=== PATIENT | male | born 1990 | race Caucasian/White ===

== ENCOUNTER 2022-08-01 10:09 | Emergency (ER) | payer MEDICAID ==
[~2022-08-01] VITALS: Ht 180.3 cm; Wt 77.3 kg
[2022-08-01 10:39] VITALS: BP 146/74
[2022-08-01 11:11] LABS: GLUCOMETER DEV NAME(LOC) ERT.5; GLUCOSE,POINT OF CARE 109 MG/DL (70-110)
== END 2022-08-01 13:15 | disposition left against medical advice (07) ==
LOC: EMS 10:09
DX: Z53.21 Procedure and treatment not carried out due to patient leaving prior to being seen by health care provider (principal)
CPT/HCPCS: 82962

== ENCOUNTER 2024-05-26 11:45 | Inpatient (IN) | payer MEDICAID ==
[~2024-05-26] VITALS: Ht 172.7 cm; Wt 86.4 kg
[~2024-05-26 11:45] MED LIST: LISI-893 PO; SERT-158 PO; SERT-439 PO
[2024-05-26 13:38] LABS: BASOPHILS % (AUTO) 0.4 % (0.0-2.0); EOSINOPHILS % (AUTO) 0 % (1.0-6.0); HEMATOCRIT 41.2 % (41-53); HEMOGLOBIN 13.4 g/dL (13.5-17.5); LYMPHOCYTES # (AUTO) 1.4 K/uL (1.0-4.8); LYMPHOCYTES % (AUTO) 11.8 % (22.0-44.0); MEAN CORPUSCULAR HGB CONC 32.6 G/dL (31.0-37.0); MEAN CORPUSCULAR VOLUME 86 fL (80-100); MONOCYTES # (AUTO) 0.5 K/uL (0.1-1.0); MONOCYTES % (AUTO) 4.1 % (2.0-9.0); NEUTROPHILS % (AUTO) 83.7 % (40.0-70.0); PLATELET COUNT (AUTO) 223 K/uL (150-450); RED BLOOD CELL COUNT(AUTO) 4.79 MIL/uL (4.50-5.90); RED CELL DISTRIBUTION WIDTH 14.8 % (11.5-14.5)
[2024-05-26 13:52] LABS: ANION GAP 14 mmol/L (8-16); CARBON DIOXIDE 26 mmol/L (22-29); CHLORIDE 95 mmol/L (98-107); CREATININE 0.93 mg/dL (0.60-1.30); GLOMERULAR FILTR. RATE CALC > 60 mL/min (>60); GLUCOSE,RANDOM 102 mg/dL (70-110); POTASSIUM 3.2 mmol/L (3.5-5.1); SODIUM SERUM 135 mmol/L (136-145); UREA NITROGEN, BLOOD 5 mg/dL (7-18)
[2024-05-26 13:56] LABS: ALCOHOL, BLOOD (SERUM) 344 mg/dL (0-10)
[2024-05-26 13:58] LABS: AMPHET/METH SCREEN,URINE NEGATIVE (NEGATIVE); BARBITURATE SCREEN, URINE NEGATIVE (NEGATIVE); BENZODIAZEPINES SCREEN,URINE NEGATIVE (NEGATIVE); CANNABINOID SCREEN,URINE NEGATIVE (NEGATIVE); COCAINE SCREEN,URINE NEGATIVE (NEGATIVE); METHADONE SCREEN, URINE NEGATIVE (NEGATIVE); OPIATE SCREEN,URINE NEGATIVE (NEGATIVE); PHENCYCLIDINE SCREEN,URINE NEGATIVE (NEGATIVE)
[2024-05-26 13:59] LABS: ALCOHOL, URINE DRUG SCREEN POSITIVE (NEGATIVE)
[2024-05-26] MEDS ORDERED: HALOPERIDOL 5 MG TABLET PO PRN (16:45)
[2024-05-26 18:59] LABS: COVID AG,FIA SOURCE NASAL SWAB
[2024-05-26 19:17] LABS: SARS-COV2 (COVID) ANTIGEN,FIA Negative (Negative)
[2024-05-26] MEDS: ZOLPIDEM TARTRATE 10 MG TABLET PO PRN (19:34)
[2024-05-27] VITALS (13 sets, daily range): BP systolic 121–154; BP diastolic 78–110; PULSE 75–125; RESP 15–20; TEMP 97.3–99.4; O2SAT 97–99
[2024-05-27] MEDS: POTASSIUM CHLORIDE 20 MEQ ER TABLET PO ONE (00:11)
[2024-05-27] MEDS: LORazepam 2 MG TABLET PO PRN (06:59)
[2024-05-27 07:01] LABS: GLUCOMETER DEV NAME(LOC) BV2S.; GLUCOSE,POINT OF CARE 121 MG/DL (70-110)
[2024-05-27 07:51] LABS: BASOPHILS % (AUTO) 0.5 % (0.0-2.0); EOSINOPHILS % (AUTO) 0.1 % (1.0-6.0); HEMATOCRIT 35.6 % (41-53); HEMOGLOBIN 11.8 g/dL (13.5-17.5); LYMPHOCYTES # (AUTO) 1.5 K/uL (1.0-4.8); LYMPHOCYTES % (AUTO) 21.2 % (22.0-44.0); MEAN CORPUSCULAR HEMOGLOBIN 28.8 pg (26.0-34.0); MEAN CORPUSCULAR VOLUME 87 fL (80-100); MONOCYTES # (AUTO) 0.5 K/uL (0.1-1.0); MONOCYTES % (AUTO) 7.9 % (2.0-9.0); NEUTROPHILS # (AUTO) 4.8 K/uL (1.8-7.7); NEUTROPHILS % (AUTO) 70.3 % (40.0-70.0); PLATELET COUNT (AUTO) 168 K/uL (150-450); RED BLOOD CELL COUNT(AUTO) 4.08 MIL/uL (4.50-5.90); RED CELL DISTRIBUTION WIDTH 14.9 % (11.5-14.5); WHITE BLOOD COUNT (AUTO) 6.9 K/uL (4.5-11.0)
[2024-05-27 08:10] LABS: HEMOGLOBIN A1C 5.5 % (3.8-5.6)
[2024-05-27 08:13] LABS: ANION GAP 6 mmol/L (8-16); CALCIUM, TOTAL 8.6 mg/dL (8.8-10.5); CARBON DIOXIDE 31 mmol/L (22-29); CHLORIDE 97 mmol/L (98-107); CHOLESTEROL 154 mg/dL (131-200); CREATININE 0.77 mg/dL (0.60-1.30); GLOMERULAR FILTR. RATE CALC > 60 mL/min (>60); GLUCOSE,RANDOM 112 mg/dL (70-110); HDL CHOLESTEROL 61 mg/dL (40-60); POTASSIUM 3.9 mmol/L (3.5-5.1); SODIUM SERUM 134 mmol/L (136-145); TRIGLYCERIDES 123 mg/dL (15-150); UREA NITROGEN, BLOOD 7 mg/dL (7-18)
[2024-05-27 08:14] LABS: CHOL/HDL RATIO 2.5 (4.2-7.3); FREE T4 (FREE THYROXINE) 1.15 ng/dL (0.76-1.46); LDL CHOL (CALC.) 68 mg/dL (0-130); THYROID STIMULATING HORMONE 1.08 uIU/mL (0.36-3.74)
[2024-05-27] MEDS ORDERED: CloNIDine HCL 0.1 MG TABLET PO PRN (14:00)
[2024-05-27] MEDS ORDERED: DOCUSATE SODIUM 100 MG CAPSULE PO PRN (14:00)
[2024-05-27] MEDS ORDERED: GuaiFENesin/D-METHORPHAN [SUGAR-FREE] 200-20MG/10 ML SYRUP UDCUP PO PRN (14:00)
[2024-05-27] MEDS ORDERED: MAG HYDROX/ALUMINUM HYD/SIMETH ES 30 ML SUSPENSION UDCUP PO PRN (14:00)
[2024-05-27] MEDS ORDERED: ONDANSETRON HCL 4 MG TABLET PO PRN (14:00)
[2024-05-27] MEDS ORDERED: NICOTINE 14 MG/24 HOUR PATCH TD PRN (14:00)
[2024-05-27] MEDS ORDERED: PETROLATUM,WHITE 28 GM JELLY TP PRN (14:00)
[2024-05-27] MEDS ORDERED: LOPERAMIDE HCL 2 MG CAPSULE PO PRN (14:00)
[2024-05-27] MEDS ORDERED: ALBUTEROL SULFATE HFA 90 MCG/PUFF 8 GM INHALER IH PRN (14:00)
[2024-05-27] MEDS ORDERED: MAGNESIUM HYDROXIDE SUSPENSION 30 ML UDCUP PO PRN (14:00)
[2024-05-27] MEDS: LISINOPRIL 10 MG TABLET PO SCH (14:11)
[2024-05-27] MEDS: MIRTAZAPINE 30 MG TABLET PO SCH (20:46)
[2024-05-27] MEDS ORDERED: MIRTAZAPINE 15 MG TABLET PO SCH (21:00)
[2024-05-27] MEDS: TraMADol HCL 50 MG TABLET PO PRN (21:07)
[2024-05-28 03:00] VITALS: BP 146/98; PULSE 102; RESP 17; TEMP 97.8; O2SAT 98
[2024-05-28 06:58] VITALS: BP 149/98; PULSE 96; RESP 18; TEMP 97.6; O2SAT 98
[2024-05-28 09:03] VITALS: BP 113/92; PULSE 86; RESP 16; TEMP 98; O2SAT 99
[2024-05-28] MEDS: GABAPENTIN 300 MG CAPSULE PO SCH (09:18)
[2024-05-28 09:19] LABS: CHOL/HDL RATIO 2.9 (4.2-7.3); THYROID STIMULATING HORMONE 1.39 uIU/mL (0.36-3.74)
[2024-05-28 09:24] LABS: HEMOGLOBIN A1C 5.3 % (3.8-5.6)
[2024-05-28 09:26] LABS: APPEARANCE,URINE CLEAR (CLEAR); BILIRUBIN,URINE NEGATIVE (NEGATIVE); COLOR,URINE LIGHT YELLOW (YELLOW); GLUCOSE, URINE (UA) NEGATIVE (NEGATIVE); KETONES,URINE NEGATIVE (NEGATIVE); LEUKOCYTE ESTERASE ,URINE NEGATIVE (NEGATIVE); NITRATE,URINE NEGATIVE (NEGATIVE); OCCULT BLOOD,URINE NEGATIVE (NEGATIVE); PROTEIN,URINE TRACE mg/dL (NEGATIVE); SPECIFIC GRAVITIY, URINE 1.013 (1.003-1.030); UROBILINOGEN,URINE <=1.0 mg/dL (<=1.0)
[2024-05-28] MEDS: IBUPROFEN 400 MG TABLET PO PRN (09:30)
[2024-05-28] MEDS: ACETAMINOPHEN 325 MG TABLET PO PRN (14:29)
[2024-05-28 16:51] VITALS: BP 144/99; PULSE 103; RESP 18; TEMP 98.3; O2SAT 98
[2024-05-28 20:50] VITALS: BP 140/97; PULSE 100; RESP 16; TEMP 98.1; O2SAT 99
[2024-05-28 20:58] VITALS: BP 144/99; PULSE 108; RESP 16; TEMP 98.1; O2SAT 99
[2024-05-29 08:43] VITALS: BP 131/90; PULSE 106; RESP 17; TEMP 97.8; O2SAT 95; O2SAT 98
[2024-05-29] MEDS ORDERED: GABA-1181 PO ×2 (10:27→12:34)
[2024-05-29] MEDS ORDERED: MIRT-149 PO ×2 (10:28→12:34)
== END 2024-05-29 14:30 | disposition home or self-care (01) | DRG 751 ==
LOC: EMS 11:45 → B2S 05-27 01:33
PROVIDERS: ADMIT Psychiatry & Neurology Child & Adolescent Psychiatry; ATTEND Psychiatry & Neurology Child & Adolescent Psychiatry
PROC: GZHZZZZ Group Psychotherapy (ICD-10-PCS; principal; 2024-05-28)
PROC: GZ51ZZZ Individual Psychotherapy, Behavioral (ICD-10-PCS; 2024-05-28)
PROC: GZ58ZZZ Individual Psychotherapy, Cognitive-Behavioral (ICD-10-PCS; 2024-05-28)
DX: F33.2 Major depressive disorder, recurrent severe without psychotic features (principal); R45.851 Suicidal ideations; E11.9 Type 2 diabetes mellitus without complications; D64.9 Anemia, unspecified; E87.6 Hypokalemia; F10.229 Alcohol dependence with intoxication, unspecified; Z20.822 Contact with and (suspected) exposure to COVID-19; F20.9 Schizophrenia, unspecified; I10 Essential (primary) hypertension; M54.2 Cervicalgia
CPT/HCPCS: 70450; 72125; 80048; 80061; 80307; 81003; 82962; 83036; 84439; 84443; 85025; 99285; G0480

== ENCOUNTER 2024-05-27 03:53 | Emergency (ER) | payer MEDICAID ==
[~2024-05-27] VITALS: Ht 175.3 cm; Wt 95.0 kg
[2024-05-27 03:57] VITALS: BP 136/82; PULSE 96; RESP 16; TEMP 98.2
== END 2024-05-27 05:42 ==
LOC: EMS 03:53
DX: M25.551 Pain in right hip (principal); F10.20 Alcohol dependence, uncomplicated; E11.9 Type 2 diabetes mellitus without complications; F20.9 Schizophrenia, unspecified; Z98.890 Other specified postprocedural states; Y90.9 Presence of alcohol in blood, level not specified
CPT/HCPCS: 73502; 99283

== ENCOUNTER 2025-02-28 21:57 | Inpatient (IN) | payer MEDICAID ==
[~2025-02-28] VITALS: Ht 172.7 cm; Wt 80.3 kg
[~2025-02-28 21:57] MED LIST changes: +GABA-1181 PO; +MIRT-149 PO; -SERT-158 PO; -SERT-439 PO
[2025-02-28 22:59] LABS: COVID AG,FIA SOURCE NASAL SWAB
[2025-02-28 23:04] LABS: ANION GAP 10 mmol/L (8-16); CALCIUM, TOTAL 8.7 mg/dL (8.8-10.5); CARBON DIOXIDE 28 mmol/L (22-29); CHLORIDE 103 mmol/L (98-107); GLOMERULAR FILTR. RATE CALC > 60 mL/min (>60); GLUCOSE,RANDOM 87 mg/dL (70-110); POTASSIUM 3.4 mmol/L (3.5-5.1); SODIUM SERUM 141 mmol/L (136-145); UREA NITROGEN, BLOOD 2 mg/dL (7-18)
[2025-02-28] MEDS: QUEtiapine FUMARATE 100 MG TABLET PO ONE (23:05)
[2025-02-28] MEDS: LORazepam 2 MG TABLET PO ONE (23:05)
[2025-02-28 23:07] LABS: BASOPHILS % (AUTO) 1.4 % (0.0-2.0); EOSINOPHILS % (AUTO) 4.2 % (1.0-6.0); HEMATOCRIT 36.6 % (41-53); HEMOGLOBIN 12.1 g/dL (13.5-17.5); LYMPHOCYTES # (AUTO) 2.3 K/uL (1.0-4.8); LYMPHOCYTES % (AUTO) 36.7 % (22.0-44.0); MEAN CORPUSCULAR VOLUME 88 fL (80-100); MONOCYTES # (AUTO) 0.5 K/uL (0.1-1.0); MONOCYTES % (AUTO) 7.2 % (2.0-9.0); NEUTROPHILS # (AUTO) 3.2 K/uL (1.8-7.7); NEUTROPHILS % (AUTO) 50.5 % (40.0-70.0); PLATELET COUNT (AUTO) 280 K/uL (150-450); RED BLOOD CELL COUNT(AUTO) 4.16 MIL/uL (4.50-5.90); RED CELL DISTRIBUTION WIDTH 16.6 % (11.5-14.5); WHITE BLOOD COUNT (AUTO) 6.4 K/uL (4.5-11.0)
[2025-02-28 23:09] LABS: ALCOHOL, URINE DRUG SCREEN POSITIVE (NEGATIVE); AMPHET/METH SCREEN,URINE POSITIVE (NEGATIVE); BARBITURATE SCREEN, URINE NEGATIVE (NEGATIVE); BENZODIAZEPINES SCREEN,URINE NEGATIVE (NEGATIVE); CANNABINOID SCREEN,URINE POSITIVE (NEGATIVE); COCAINE SCREEN,URINE NEGATIVE (NEGATIVE); METHADONE SCREEN, URINE NEGATIVE (NEGATIVE); OPIATE SCREEN,URINE NEGATIVE (NEGATIVE); PHENCYCLIDINE SCREEN,URINE NEGATIVE (NEGATIVE)
[2025-02-28 23:10] LABS: ALCOHOL, BLOOD (SERUM) 176 mg/dL (0-10)
[2025-02-28 23:17] LABS: SARS-COV2 (COVID) ANTIGEN,FIA Negative (Negative)
[2025-03-01] MEDS: POTASSIUM CHLORIDE 20 MEQ ER TABLET PO ONE (00:18)
[2025-03-01 07:38] VITALS: O2SAT 98
[2025-03-01 07:46] LABS: GLUCOMETER DEV NAME(LOC) ER.7; GLUCOSE,POINT OF CARE 98 MG/DL (70-110)
[2025-03-01 10:45] VITALS: BP 127/68; RESP 16; TEMP 97.9; O2SAT 98
[2025-03-01 20:20] VITALS: BP 124/76; PULSE 85; RESP 16; TEMP 99.1; O2SAT 97
[2025-03-01] MEDS: QUEtiapine FUMARATE 200 MG TABLET PO SCH (20:58)
[2025-03-02] MEDS: lisinopriL 10 MG TABLET PO SCH (09:35)
[2025-03-02 09:55] VITALS: BP 120/86; PULSE 88; RESP 16; TEMP 98; O2SAT 97
[2025-03-02] MEDS: QUEtiapine FUMARATE 200 MG TABLET PO ONE (12:38)
[2025-03-02 20:13] VITALS: BP 125/85; PULSE 85; RESP 18; TEMP 97.9
[2025-03-02] MEDS: QUEtiapine FUMARATE 200 MG TABLET PO SCH (20:18)
[2025-03-02] MEDS: LORazepam 2 MG TABLET PO PRN (20:18)
[2025-03-03 08:32] VITALS: BP 101/60; PULSE 77; RESP 17; TEMP 98; O2SAT 98
[2025-03-03 09:11] VITALS: BP 113/76; PULSE 84; RESP 16; TEMP 98.2; O2SAT 99
[2025-03-03 20:15] VITALS: BP 118/72; PULSE 82; RESP 18; TEMP 97.5; O2SAT 97
[2025-03-04 10:04] VITALS: BP 115/70; PULSE 60; RESP 16; TEMP 98.1; O2SAT 99
[2025-03-04 20:19] VITALS: BP 101/68; PULSE 81; RESP 17; TEMP 98; O2SAT 97
[2025-03-05 08:11] VITALS: BP 108/70; PULSE 91; RESP 18; TEMP 97.7; O2SAT 98
[2025-03-05 20:21] VITALS: BP 108/69; PULSE 97; RESP 16; TEMP 98.1; O2SAT 97
[2025-03-05] MEDS: QUEtiapine FUMARATE 200 MG TABLET PO SCH (21:26)
[2025-03-06] MEDS: QUEtiapine FUMARATE 200 MG TABLET PO SCH (08:17)
[2025-03-06 08:29] VITALS: BP 103/58; PULSE 88; RESP 18; TEMP 97.7; O2SAT 98
[2025-03-06 20:32] VITALS: BP 114/71; PULSE 93; RESP 17; TEMP 98.5; O2SAT 97
[2025-03-07 08:42] VITALS: BP 107/60; PULSE 86; RESP 17; TEMP 97.5; O2SAT 98
[2025-03-07] MEDS: haloperidoL 5 MG TABLET PO PRN (15:48)
[2025-03-07] MEDS: ZOLPIDEM TARTRATE 10 MG TABLET PO PRN (20:22)
[2025-03-07 20:55] VITALS: BP 117/87; PULSE 92; RESP 18; TEMP 98.9; O2SAT 98
[2025-03-08 08:50] VITALS: BP 100/60; PULSE 88; RESP 18; TEMP 97.8; O2SAT 98
[2025-03-08 20:10] VITALS: BP 123/82; PULSE 71; RESP 16; TEMP 98.4; O2SAT 100
[2025-03-09 09:31] VITALS: BP 115/66; PULSE 100; RESP 16; TEMP 98.1; O2SAT 97
[2025-03-09 20:18] VITALS: BP 119/69; PULSE 94; RESP 18; TEMP 98.3; O2SAT 98
[2025-03-10 08:21] VITALS: BP 109/62; PULSE 86; RESP 17; TEMP 97.9; O2SAT 98
[2025-03-10] MEDS ORDERED: QUET200T PO ×2 (13:09→13:10)
[2025-03-11] MEDS ORDERED: LISI-893 PO (06:25)
[2025-03-11] MEDS ORDERED: QUET200T30 PO ×2 (06:25)
== END 2025-03-10 14:53 | disposition home or self-care (01) | DRG 750 ==
LOC: EMS 21:57 → B3A 03-01 08:34
PROVIDERS: ADMIT Psychiatry & Neurology Psychiatry; ATTEND Psychiatry & Neurology Psychiatry
PROC: GZHZZZZ Group Psychotherapy (ICD-10-PCS; principal; 2025-03-01)
PROC: GZ51ZZZ Individual Psychotherapy, Behavioral (ICD-10-PCS; 2025-03-01)
DX: F25.1 Schizoaffective disorder, depressive type (principal); R45.851 Suicidal ideations; E11.9 Type 2 diabetes mellitus without complications; F10.10 Alcohol abuse, uncomplicated; E87.6 Hypokalemia; D64.9 Anemia, unspecified; Z20.822 Contact with and (suspected) exposure to COVID-19; F15.10 Other stimulant abuse, uncomplicated; I10 Essential (primary) hypertension; Y90.6 Blood alcohol level of 120-199 mg/100 ml; F12.10 Cannabis abuse, uncomplicated; Z79.899 Other long term (current) drug therapy
CPT/HCPCS: 80048; 80307; 82962; 84132; 85025; 99285; G0480